=== PATIENT | female | born 1945 | race Caucasian/White ===

== ENCOUNTER → 2023-07-06 | Outpatient (CLI) | payer MEDICARE ==
[~2023-07-06] MED LIST: ASPI81CH PO; Advil200 M1 PO; Aspir-Trin325 MG PO; Aspirin EC81 MG PO; CHLO25B PO; CHOL10002 PO; CITRACAL + D E1 EACH PO; Cranberry300 MG PO; ESTR2 PO; EVENING PRIMR1000 MG PO; FEXPSEER PO; Hair, Skin & N1 EACH PO; KRILL OIL500 MG PO; METO25ER PO; OXYACE5T PO; Omeprazole20 M1 PO; POTCHL10ER PO; SIMV10 PO; Stool Softener100 MG PO; VIT1CAPS12 PO
== END ==
LOC: LAB 12:33 → LAB SHORT 12:33
DX: L82.0 Inflamed seborrheic keratosis (principal)
CPT/HCPCS: 88305